=== PATIENT | female | born 1990 | race Caucasian/White ===

== ENCOUNTER 2017-02-25 12:20 | Emergency (ER) | payer MEDICAID, OTHER ==
[2017-02-25 12:21] VITALS: BMI 30.4
[2017-02-25 12:38] VITALS: RESP 18
--- NOTE | 2017-02-25 13:34 | C.PDOC ---
History Of Present Illness Patient is a 27 y/o female who presents to the ED with complaints of lower back and pelvic pain after a fall yesterday. Patient is approximately 6 weeks and has a Hx of two miscarriages. The patient fell back into a wall due to her daughter pulling out a chair from underneath her;. Patient admits to sharp right-sided lower lumbar pain and sharp right-sided abdominal pain. Denies any use of pain medication since falling. . Time Seen by Provider: 02/25/17 13:19 Chief Complaint (Nursing): Back Pain History Per: Patient History/Exam Limitations: no limitations Onset/Duration Of Symptoms: Hrs (pain began last night after falling. ) Current Symptoms Are (Timing): Still Present Quality Of Discomfort: Sharp Pain Scale Rating Of: 5 Recent travel outside of the [place]: No Additional History Per: Patient Past Medical History Reviewed: Historical Data, Nursing Documentation, Vital Signs Vital Signs: Last Vital Signs Temp 98.8 F 02/25/17 12:32 Pulse 79 02/25/17 12:32 Resp 18 02/25/17 12:32 BP 119/62 02/25/17 12:32 Pulse Ox 100 02/25/17 14:04 - Medical History PMH: Anemia Other Surgeries: Cesarian section x2. - [facility] Procedures LOW CERVICAL (03/30/14) Family History: States: Unknown Family Hx - Social History Hx Tobacco Use: No Hx Alcohol Use: No Hx Substance Use: No - Immunization History Hx Tetanus Toxoid Vaccination: No Hx Influenza Vaccination: Yes Hx Pneumococcal Vaccination: No Review Of Systems Constitutional: Negative for: Fever, Chills Cardiovascular: Negative for: Chest Pain Respiratory: Negative for: Shortness of Breath Gastrointestinal: Negative for: Nausea, Vomiting Genitourinary: Negative for: Dysuria, Vaginal Discharge, Vaginal Bleeding Physical Exam - Physical Exam Appears: Non-toxic, In Acute Distress Skin: Normal Color, Warm, Dry Head: Atraumatic, Normacephalic Oral Mucosa: Moist Chest: Symmetrical Cardiovascular: Rhythm Regular, No Murmur Respiratory: Normal Breath Sounds, No Rales, No Rhonchi, No Wheezing Gastrointestinal/Abdominal: Soft, Other (R abdominal area discomfort. ) Back: Muscle Spasm (R paraspinal area. ) Pelvic: No Vaginal Bleeding, No Vaginal Discharge Neurological/Psych: Oriented x3, Normal Speech, Normal Cognition Gait: Steady ED Course And Treatment - Laboratory Results Result Diagrams: 02/25/17 14:14 02/25/17 14:14 O2 Sat by Pulse Oximetry: 100 (Room air) Pulse Ox Interpretation: Normal Medical Decision Making Medical Decision Making: Plan: blood work, UA, US Transvag ordered. US shows very early IUP. Patient does not want any pain medication. Disposition Counseled Patient/Family Regarding: Studies Performed, Diagnosis, Need For Followup - Disposition Disposition: HOME/ ROUTINE Disposition Time: 15:28 Condition: STABLE Additional Instructions: Rest, use a heating pad, massage, warm showers for muscle spasm Follow up with your OB Instructions: Contusion in Adults (ED), Muscle Spasm (ED) Forms: [facility] (Yoruba), General Discharge Instructions - POA Present On Arrival: None - Clinical Impression Clinical Impression: Low back pain, at early stage - Scribe Statement The provider has reviewed the documentation as recorded by the Scribe Ana Gross All medical record entries made by the Scribe were at my direction and personally dictated by me. I have reviewed the chart and agree that the record accurately reflects my personal performance of the history, physical exam, medical decision making, and the department course for this patient. I have also personally directed, reviewed, and agree with the discharge instructions and disposition.
[2017-02-25 14:19] LABS: BASO % 0.3 % (0.0-2.0); EOS # 0.1 K/uL (0.0-0.7); EOS % 1.9 % (0.0-4.0); LYMPH # 1.4 K/uL (1.0-4.3); LYMPH % 20.5 % (20.0-40.0); MEAN CELL VOLUME 84.2 fL (81.0-99.0); MEAN CORPUSCULAR HEMOGLOBIN 28.2 pg (27.0-31.0); MEAN CORPUSCULAR HGB CONC 33.5 g/dL (33.0-37.0); MEAN PLATELET VOLUME 9.5 fL (7.2-11.7); MONO # 0.6 K/uL (0.0-0.8); MONO % 8.4 % (0.0-10.0); RED CELL DISTRIBUTION WIDTH 15.5 % (11.5-14.5); WHITE BLOOD COUNT 6.6 K/uL (4.8-10.8)
[2017-02-25 14:23] LABS: RBC URINE 3 /hpf (0-3); URINE BILIRUBIN NEGATIVE (NEGATIVE); URINE BLOOD NEGATIVE (NEGATIVE); URINE COLOR Yellow (YELLOW); URINE GLUCOSE (UA) NORMAL (Normal); URINE KETONE TRACE mg/dL (NEGATIVE); URINE LEUKOCYTE ESTERASE NEG Leu/uL (Negative); URINE PROTEIN NEGATIVE (NEGATIVE); URINE UROBILINOGEN NORMAL mg/dL (0.2-1.0); WBC URINE 1 /hpf (0-5)
[2017-02-25 14:32] LABS: ALB/GLOB RATIO 1.4 (1.0-2.1); ALKALINE PHOSPHATASE 54 U/L (38-126); ALT/SGPT 28 U/L (9-52); AST/SGOT 21 U/L (14-36); BILIRUBIN,TOTAL 0.3 mg/dL (0.2-1.3); BLOOD UREA NITROGEN 14 mg/dL (7-17); CARBON DIOXIDE 24 mmol/L (22-30); CHLORIDE 104 mmol/L (98-107); GFR AFRICAN-AMERICAN > 60; GLUCOSE,RANDOM 70 mg/dL (65-105); POTASSIUM 3.9 mmol/L (3.6-5.2); SODIUM 141 mmol/L (132-148)
[2017-02-25 15:44] VITALS: BP 108/74; PULSE 84; TEMP 98.2; O2SAT 98
--- NOTE | 2017-02-25 15:49 | US ---
PROCEDURE: OB Pelvic Ultrasound HISTORY: fall, with pelvic pain COMPARISON: None available. FINDINGS: UTERUS: Gestational sac: Single intrauterine gestation. Heart rate: 0 bpm. age (Ultrasound estimated): 5 weeks 5 days +/-0 weeks 4 days Caroline-gestational hemorrhage: Small subchorionic bleeds noted measures 1.3 x 10.5 x 0.5 centimeter. Date of delivery (Ultrasound estimated) : 10/23/2017 Uterus measures 9.9 x 6.1 x 6.96 cm. Normal in size and appearance. CERVIX: Long and closed. No cervical abnormality seen. RIGHT OVARY: Measures 2.2 x 1.6 x 1.9 cm. No mass lesion. Normal flow. LEFT OVARY: Measures measures 1.6 x 1.2 x 1.4 Cm. No solid mass. Normal flow. There is cyst seen at the left ovary measures 1.6 x 1.2 x 1.4 centimeter may represent corpus luteum cyst. FREE FLUID: None. OTHER FINDINGS: None. IMPRESSION: Intrauterine gestational sac contains yolk sac and pole. No heart activity appreciated in this study. The possibility of demise should be considered. Close follow-up reassessment is recommended. The ultrasound estimated of the gestational age is 5 weeks 5 days. Small subchorionic bleed measures 1.3 x 0.5 x 0.5 centimeter.
== END 2017-02-25 15:45 | disposition home or self-care (01) ==
LOC: C.ER 12:20
DX: O26.891 Other specified pregnancy related conditions, first trimester (principal); M54.5 Low back pain; Z3A.01 Less than 8 weeks gestation of pregnancy

== ENCOUNTER 2017-10-05 22:44 | Inpatient (IN) | payer MEDICAID ==
[~2017-10-05 22:44] MED LIST: Sodium Citrate/Citric Acid 15 ml Sol PO ONE
[2017-10-05] MEDS ORDERED: cefOXitin IV 2 gm in Saline 2 GM in Sodium Chloride 0.9% 50 ML IV SCH (23:45)
[2017-10-05] MEDS ORDERED: Lactated Ringer's 1,000 ML IV SCH (23:45)
[2017-10-06 00:31] LABS: BASO % 0.2 % (0.0-2.0); EOS # 0.1 K/uL (0.0-0.7); EOS % 0.7 % (0.0-4.0); HEMOGLOBIN 10.7 g/dL (11.0-16.0); LYMPH # 1.7 K/uL (1.0-4.3); LYMPH % 14.3 % (20.0-40.0); MEAN CORPUSCULAR HEMOGLOBIN 29.5 pg (27.0-31.0); MEAN CORPUSCULAR HGB CONC 33.9 g/dL (33.0-37.0); MEAN PLATELET VOLUME 9.5 fL (7.2-11.7); MONO # 0.8 K/uL (0.0-0.8); MONO % 7.1 % (0.0-10.0); NEUT % 77.7 % (50.0-75.0); NRBC % 0.1 % (0.0-2.0); RBC 3.63 Mil/uL (3.80-5.20); RED CELL DISTRIBUTION WIDTH 15.1 % (11.5-14.5); WHITE BLOOD COUNT 11.5 K/uL (4.8-10.8)
--- NOTE | 2017-10-06 00:32 | OBHP ---
Datetime: 10/05/2017 23:59 IP Adm Impression: Term, intrauterine ; No Active Labor; Intact Membranes IP Chief Complaint Other: Previous C/S x 2; previous LGA IP Adm Impression Other: Uterine contractions IP Admit Plan: Admit to unit; Initiate Section protocol Admit Comment, IP Provider: 27 y.o. , LMP 01/17/17, SUNITAH 10/23/17, EGA 37w 3d c/o worsening lowe r abdominal/ pelvic pain, since 1730 hours. Dull, constant lower abdominal pain, pain scale now 6/10 with intermittent exacerbations every 6-8 minutes, pain scale 10/10, to the point where "I can't walk or move". This has been occurring intermittently x 1 week. 09/25/17 was seen at [facility] for possible rup ture of membranes; found to be intact. (+) AFM; denies LOF, VB. care:[facility]; last visit 10/03/17. Patient desires TOLAC. P Ob: x 1, 2007, 38 weeks, female, 6lb, no complications. C/S, 2012, 42 weeks, female, 9lb 5o z, failed IOL with NRFHRT. C/S, 2013, female, 6lb 10oz, no complications. All at [facility]. S pont ab x 2: 2011 @ 4months; 2015 @ 12 weeks - no D_C. 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 Denies fibroids, abnormal Pap PMH: denies PSH: C/S x 2 NKDA Food allergy: 1) pineapple = rash to lips; 2) kiwi friut = anaphylaxis Meds: PNV - QD Soc Hx: denies tobacco, illicit drug or EtOH use. With FOB x 8 years; lives with him and their 3 g irls. Homemaker Fam Hx; Mother when patinet 8 - drug-related. Father alive 48 y.o. - no med issues. (+) P aternal side - DM and cardiac disease. Mat side - breast cancer P.E.: as above. Mildly obese in NAD; slighly anxious. Awake, alert, oriented to time, person and p lace. Pleasant and cooperative. Assessment: 27 y.o. P3023, 37w 3d, prev C/S x 2 - uterine contracitons and abdominal tenderness - cannot r/o uterine rupture, or placenta abruption. Cateagory 1 tracing. Patient last ate 2000 hours (oxtail and 4 spoons of rice. Per patient she couldn't eat as she was in so much pain). Conversatoin had with anesthesia: ideal to wait 8 hours since last meal before proceeding with C/S. Informed cons ents obtained and in chart. Patient is clincially stable. Plan: 1) Admit 2) NPO 3) Admission labs 4) Continuous EFM 5) Notify peds 6) Posada to gravity 7) Pre-op medications 8) abdominal prep and shave Pelvic Type - PN: Adequate Extremities - PN: Normal Abdomen - PN: Abnormal Back - PN: Normal Breast - PN: Normal Lungs - PN: Normal Heart - PN: Normal Thyroid - PN: Not Done Neurologic - PN: Normal HEENT - PN: Normal General - PN: Normal Presentation-Admit: Vertex FHR - Baseline A Provider: 130 Contraction Comments Provider: irregular, 8 - 12 mnutes Comments, ACOG Physical Exam: Skin: warm to touch; multiple tattooes Abdomen: Obest. Gravid. (+) tenderness in LUQ and over Pfannenstiel scar. Fundal height 39 cm Healed Pfannenstiel scar. All other systems reviewed and are negative Gestation - Est Wks by US: 37w 3d IP Hx Assessment: The History has been Reviewed and is Current EGA AdmitDate IP: 37.3 Vital Signs Provider: Reviewed; Within Normal Limits IP Chief Complaint: Uterine contractions NICHD Variability Prov Fetus A: Moderate 6-25bpm NICHD Accel Fetus A IP Provider: 15X15 Dilatation, Provider: 1 Effacement, Provider: 20 Station, Provider: high Genitourinary Exam: Normal DTRs - PN: Not Done
[2017-10-06 00:35] LABS: SQUAMOUS EPITHIAL 2 /hpf (0-5); URINE BACTERIA RARE (<OCC); URINE BILIRUBIN NEGATIVE (NEGATIVE); URINE BLOOD NEGATIVE (NEGATIVE); URINE CLARITY Clear (Clear); URINE COLOR Yellow (YELLOW); URINE GLUCOSE (UA) NORMAL (Normal); URINE LEUKOCYTE ESTERASE NEG Leu/uL (Negative); URINE PROTEIN 1+ mg/dL (NEGATIVE)
[2017-10-06 00:46] LABS: ALB/GLOB RATIO 1.1 (1.0-2.1); ALBUMIN 3.4 g/dL (3.5-5.0); ALT/SGPT 11 U/L (9-52); AST/SGOT 22 U/L (14-36); BLOOD UREA NITROGEN 9 mg/dL (7-17); GFR AFRICAN-AMERICAN > 60; GFR NON-AFRICAN AMERICAN > 60
[2017-10-06 01:00] LABS: BARBITURATES, UR NEGATIVE (NEGATIVE); BENZODIAZEPINES, UR NEGATIVE (NEGATIVE); OPIATES, UR NEGATIVE (NEGATIVE); PHENCYCLIDINE, UR NEGATIVE (NEGATIVE)
[2017-10-06] MEDS ORDERED: cefOXitin 2 GM in Sodium Chloride 0.9% 100 ML IV SCH (01:00)
[2017-10-06] MEDS: Lactated Ringer's 1,000 ML IV SCH ×2 (01:35→11:58)
[2017-10-06] MEDS ORDERED: Sodium Citrate/Citric Acid 15 ml Sol ONE (01:35)
[2017-10-06] MEDS ORDERED: cefOXitin IV 2 gm in Saline 2 GM/50 ML BAG IVPB ONE (01:35)
[2017-10-06] MEDS ORDERED: Oxytocin 20 units in LR 2,000 ML IV ONE (01:35)
[2017-10-06] MEDS ORDERED: Morphine 1 mg/ml preservative-free Inj(Duramorph) ONE (01:52)
[2017-10-06] MEDS ORDERED: Midazolam 2 MG/2 ML VIAL ONE (02:14)
[2017-10-06] MEDS ORDERED: Ketamine 50 mg/ml Inj (2 ml) ONE (02:14)
[2017-10-06] MEDS ORDERED: Oxycodone/Acetaminophen 5/325 mg Tab PO PRN ×2 (03:18)
--- NOTE | 2017-10-06 03:30 | OBDS ---
DELIVERY PERSONNEL Delivery Doctor: Mary Joyner MD Scrub Nurse: Marguerite Arreola Patient Registration Clerk: Mini Elder RN Anesthesiologist: MATERNAL INFORMATION Delivery Anesthesia: Spinal Medications in Delivery: Pitocin Estimated Blood Loss (ml): 800 Placenta Cultured: No Maternal Complications: None RN Comments: Live baby girl delivered via repeat . s 8. Provider Comments: Uncomplicated repeat LTCS with delivery of live female infant, ROT position, kat ght 7lb 5oz, 's 8 at 1/5/10 minutes. Patient tolerated procedure well. to well baby n deana for observation. Both in stable condition. LABOR SUMMARY EDC: 10/23/2017 00:00 No. Babies in Womb: 1 Attempted: No Labor Anesthesia: None LABOR INFORMATION Reason for Induction: Not Applicable Onset of Labor: 10/05/2017 17:00 Oxytocin: N/A Group B Beta Strep: Negative Antibiotics # of Doses: 0 Steroids Given: None Reason Steroids Not Administered: Not Applicable MEMBRANES Membranes Rupture Method: Artificial Rupture of Membranes: 10/06/2017 02:28 Length of Rupture (hrs): 0.00 Amniotic Fluid Color: Clear Amniotic Fluid Amount: Moderate Amniotic Fluid Odor: Normal STAGES OF LABOR Stage 3 hrs: 0 Stage 3 min: 1 Total Time in Labor hrs: 9 Total Time in Labor min: 29 VAGINAL DELIVERY Episiotomy: None Laceration Extension: N/A Laceration Type: None CSECTION DELIVERY Primary Indication: Repeat Elective CSection Urgency: Elective CSection Incidence: Repeat Labor: No Labor Elective: Elective CSection Incision: Lower Uterine Transverse BABY A INFORMATION Delivery Date/Time: 10/06/2017 02:28 Method of Delivery: Born in Route : No : N/A Forceps: N/A Vacuum Extraction: N/A Shoulder Dystocia : No SHOULDER DYSTOCIA BABY A Infant Delivery Date/Time: 10/06/2017 02:28 PRESENTATION/POSITION BABY A Presentation: Cephalic Cephalic Presentation: Vertex Vertex Position: Right Occipital Transverse Breech Presentation: N/A PLACENTA INFORMATION BABY A Placenta Delivery Time : 10/06/2017 02:29 Placenta Method of Delivery: Manual Removal Placenta Status: Delivered SCORES BABY A Heart Rate 1 min: >100 bpm Resp Effort 1 min: Slow, Irregular Reflex Irritability 1 min: Cough or Sneeze or Pulls Away Muscle Tone 1 min: Some Flexion of Extremities Color 1 min: Body Plainedge, Extremities Blue SCORE 1 MIN: 7 Heart Rate 5 min: >100 bpm Resp Effort 5 min: Slow, Irregular Reflex Irritability 5 min: Cough or Sneeze or Pulls Away Muscle Tone 5 min: Some Flexion of Extremities Color 5 min: Body Plainedge, Extremities Blue SCORE 5 MIN: 7 Heart Rate 10 min: >100 bpm Resp Effort 10 min: Slow, Irregular Reflex Irritability 10 min: Cough or Sneeze or Pulls Away Muscle Tone 10 min: Active Motion Color 10 min: Body Plainedge, Extremities Blue SCORE 10 MIN: 8 INFORMATION BABY A Gestational Age at Delivery: 37.4 Gestational Status: Term Outcome : Liveborn Condition : Stable Infant Sex: Female IDENTIFICATION/MEDS BABY A ID Band Number: [id number] Sensor Number: [id number] Vitamin K Given : Not Given Erythromycin Given: Not Given WEIGHT/LENGTH BABY A Birthweight (gms): 3305 Weight (lb): 7 Weight (oz): 5 Infant Length Inches: 19.50 Length cms: 49.5 CORD INFORMATION BABY A No. Cord Vessels: 3 Nuchal Cord : N/A Cord Blood Taken: Yes Infant Suction: Mouth; Nose ASSESSMENT BABY A Infant Complications: None Physical Findings at Delivery: Within Normal Limits Respirations: Appears Normal Reed Cleaner/ALS Called : No Care By: Dr. Mercado/ Jefferson GALLO RN Transferred To: [facility]
[2017-10-06] MEDS ORDERED: DiphenhydrAMINE 50 mg/ml Inj IVP PRN (03:31)
--- NOTE | 2017-10-06 03:33 | PCM.SURG1 ---
Surgeon's Initial Post Op Note - Surgeon's Notes Surgeon: Yolanda Joyner MD Substation Maintenance Technician: Trent Vidal MD Type of Anesthesia: Spinal Anesthesia Administered By: Deonte Lau MD Pre-Operative Diagnosis: 37 weeks 3 days, previous section x 2; uterine contractions; abdominal tenderness Operative Findings: Live female infant, ROT position, weight 7lb 5oz, 's 7/ 7/8 at 1/5/10 minutes. Grossly normal placenta; 3 vessel cord. Normal uterus; and normal fallopian tubes and ovaries bilaterally. Post-Operative Diagnosis: Same Operation Performed: Repeat transverse lower uterine segment section Specimen/Specimens Removed: none Estimated Blood Loss: EBL {In ML}: 800 (U.O. 300 mL; IVFs 2,000 mL LR with 20 units pitocin) Blood Products Given: N/A Drains Used: No Drains Post-Op Condition: Good Date of Surgery/Procedure: 10/06/17 Time of Surgery/Procedure: 03:15
--- NOTE | 2017-10-06 03:43 | OBADHP ---
Datetime: 10/05/2017 23:59 IP Chief Complaint Other: Previous C/S x 2; previous LGA IP Adm Impression Other: Uterine contractions Admit Comment, IP Provider: 27 y.o. , LMP 01/17/17, SUNITHA 10/23/17, EGA 37w 3d c/o worsening lowe r abdominal/ pelvic pain, since 1730 hours. Dull, constant lower abdominal pain, pain scale now 6/10 with intermittent exacerbations every 6-8 minutes, pain scale 10/10, to the point where "I can't walk or move". This has been occurring intermittently x 1 week. 09/25/17 was [place] at [facility] possible rup [place]ure of membranes; found to be intact. (+) AFM; denies LOF, VB. care:[facility]; last visit 10/03/17. Patient desires TOLAC. P Ob: x 1, 2007, 38 weeks, female, 6lb, no complications. C/S, 2012, 42 weeks, female, 9lb 5o z, failed IOL with NRFHRT. C/S, 2013, female, 6lb 10oz, no complications. All at [facility]. S pont ab x 2: 2011 @ 4months; 2016 @ 12 weeks - no D_C. 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 Denies fibroids, abnormal Pap PMH: denies PSH: C/S x 2 NKDA Food allergy: 1) pineapple = rash to lips; 2) kiwi friut = anaphylaxis Meds: PNV - QD Soc Hx: denies tobacco, illicit drug or EtOH use. With FOB x 8 years; lives with him and their 3 g irls. Homemaker Fam Hx; Mother when patinet 8 - drug-related. Father alive 48 y.o. - no med issues. (+) P aternal side - DM and cardiac disease. Mat side - breast cancer P.E.: as above. Mildly obese in NAD; slighly anxious. Awake, alert, oriented to time, person and p lace. Pleasant and cooperative. Assessment: 27 y.o. P3023, 37w 3d, prev C/S x 2 - uterine contracitons and abdominal tenderness - cannot r/o uterine rupture, or placenta abruption. Cateagory 1 tracing. Patient last ate 2000 hours (oxtail and 4 spoons of rice. Per patient she couldn't eat as she was in so much pain). Conversatoin had with anesthesia: ideal to wait 8 hours since last meal before proceeding with C/S. Informed cons ents obtained and in chart. Patient is clincially stable. Plan: 1) Admit 2) NPO 3) Admission labs 4) Continuous EFM 5) Notify peds 6) Posada to gravity 7) Pre-op medications 8) abdominal prep and shave Pelvic Type - PN: Adequate Extremities - PN: Normal Abdomen - PN: Abnormal Back - PN: Normal Breast - PN: Normal Lungs - PN: Normal Heart - PN: Normal Thyroid - PN: Not Done Neurologic - PN: Normal HEENT - PN: Normal General - PN: Normal Presentation-Admit: Vertex FHR - Baseline A Provider: 130 Contraction Comments Provider: irregular, 8 - 12 mnutes Comments, ACOG Physical Exam: Skin: warm to touch; multiple tattooes Abdomen: Obest. Gravid. (+) tenderness in LUQ and over Pfannenstiel scar. Fundal height 39 cm Healed Pfannenstiel scar. All other systems reviewed and are negative Gestation - Est Wks by US: 37w 3d IP Hx Assessment: The History has been Reviewed and is Current Vital Signs Provider: Reviewed; Within Normal Limits IP Chief Complaint: Uterine contractions NICHD Variability Prov Fetus A: Moderate 6-25bpm NICHD Accel Fetus A IP Provider: 15X15 Dilatation, Provider: 1 Effacement, Provider: 20 Station, Provider: high Genitourinary Exam: Normal DTRs - PN: Not Done EGA AdmitDate IP: 37.3 IP Adm Impression: Term, intrauterine ; No Active Labor; Intact Membranes IP Admit Plan: Admit to unit; Initiate Section protocol
--- NOTE | 2017-10-06 09:25 | OP ---
PROCEDURE DATE: 10/06/2017 SURGEON: Yolanda Joyner MD [employer] LICENSEE: Trent iVdal MD ANESTHESIOLOGIST: Deonte Lau MD TYPE OF ANESTHESIA: Spinal. PREOPERATIVE DIAGNOSES: 37 weeks 3 days gestation, previous Caesarean section x2 with uterine contractions and abdominal tenderness. POSTOPERATIVE DIAGNOSES: 37 weeks 3 days gestation, previous Caesarean section x2 with uterine contractions and abdominal tenderness; very thin lower uterine segment. OPERATIVE FINDINGS: Very thin lower uterine segment. Live female from the right occipital transverse position. Weight was 7 pounds 5 ounces. ' s were 7, 7, and 8 at 1, 5, and 10 minutes, respectively. Grossly normal placenta with a three-vessel cord. Normal uterus, and normal ovaries and fallopian tubes , bilaterally. OPERATION PERFORMED: Repeat transverse lower uterine segment Caesarean section. SPECIMENS: None. ESTIMATED BLOOD LOSS: 800 mL. URINE OUTPUT: 300 mL of clear urine. INTRAVENOUS FLUIDS: 2000 mL of lactated Ringer's. First 1000 liters had 20 units of Pitocin. BLOOD PRODUCTS GIVEN: None. Drains used: none. POSTOPERATIVE CONDITION: Good. DESCRIPTION OF PROCEDURE: The patient was taken to the operating room after having obtained informed consent for the anticipated procedure. This included a discussion of possible risks and complications including but not limited to infection, requiring antibiotics, hemorrhage requiring blood transfusion, repair of any damage to internal organs, possible Caesarean hysterectomy. The patient expressed understanding. No questions were offered. Consents were signed, dated, witnessed, and placed in the chart. The patient received Mefoxin 2 gm prior to being escorted to the operating room. A Posada indwelling catheter was placed under sterile conditions. The patient was then escorted to the operating room via wheelchair. She was placed on the operating room table in sitting position where spinal anesthesia was administered without incident. The patient was immediately repositioned to a supine position. The abdomen was prepped, and she was draped in the usual sterile fashion. After assuring an adequate level of anesthesia using a scalpel, a Pfannenstiel incision was made on the skin through the previous scars. The incision was carried down through the subcutaneous tissue using the Bovie electrocautery. The fascia was identified, it was nicked in the midline and incision was extended bilaterally also using the Bovie electrocautery. The rectus muscle was then dissected off the overlying fascia. The rectus muscle was then in the midline by sharp dissection. By blunt dissection, the abdominal cavity was entered. The bladder flap was created. A transverse incision was made on the uterus using the scalpel. Amniotomy was performed and copious amount of clear amniotic fluid was obtained. Atraumatic delivery of the infant ensued with the findings as above. Once on the operative field, the 's mouth and nose were bulb suctioned and umbilical cord was doubly clamped and cut. The was handed off the operative field to the spray unit feeder in attendance. The placenta was delivered by manual extraction. It was grossly normal with three vessels present in the cord. The uterus was then exteriorized for closure. Uterine exploration was performed and the uterus was firm and contracted. The uterine incision was closed in two layers using 0 Vicryl. The first layer was in a running interlocking fashion. The second layer was in a horizontal imbricating fashion. After assuring an adequate level of hemostasis on the uterine incision, the posterior aspect of the uterus was examined - findings of the pelvic viscera as described above. Copious irrigation was performed. Attention was then redirected to the anterior aspect of the uterus. Bladder flap was created. A layer of Surgicel was placed along the uterine incision. After recreating the bladder flap, the uterus was returned to the abdominal cavity. The paracolic gutters were cleared of all debris. The peritoneum was reapproximated using 2-0 chromic in a running fashion, and the rectus muscle was reapproximated in midline also using 2-0 chromic in a running fashion. The fascia was reapproximated using 0 Vicryl in a running fashion in one strand. The subcutaneous tissue was reapproximated using 0 plain gut in a running fashion. The skin was reapproximated using surgical clips. The patient was repositioned in a frog-leg manner. Bimanual exploration was performed. The uterus was again evacuated of all clots and debris. It was contracted and firm, at the level of the umbilicus. The patient was subsequently transferred to [facility]. had been transferred to [facility] for further evaluation. Dr. Trent Vidal was present for the entire procedure, from beginning to end. His presence was necessary for the followin) adequate visualization of the operative field at all times 2) the safe and atraumatic delivery of the infant 3) assuring adequate hemostasis at all times Yolanda MD Ar MTDEllen
[2017-10-06] MEDS: Simethicone 80 mg Chewtab PO SCH ×4 (10:21→21:33)
[2017-10-07] MEDS: Simethicone 80 mg Chewtab PO SCH ×4 (09:15→21:55)
--- NOTE | 2017-10-07 09:21 | OBPPN ---
Datetime: 10/07/2017 09:18 PP Pain Prov: Within normal limits PP Nausea Prov: Denies PP Flatus Prov: Yes PP BM Prov: No PP Breasts Prov: Normal PP Heart Prov: Normal PP Lungs Prov: Normal PP Abdomen/Uterus Prov: Normal PP Lochia Prov: Normal PP Extremities Prov: Normal PP C/S Incision Prov: Normal PP Impression Prov: Normal progression PP Plan Prov: Continue present management PP Progress Note Prov: s: no c/o; pain well controlled o: incision c/d/i; no erythema i: s/p repeat cd p: cbc pending wound hygiene reviewed. IP PP Procedures: None Vital Signs Provider PP: Within Normal Limits
[2017-10-07 09:26] LABS: BASO % 0.3 % (0.0-2.0); EOS # 0.2 K/uL (0.0-0.7); EOS % 1.1 % (0.0-4.0); HEMOGLOBIN 10.6 g/dL (11.0-16.0); LYMPH # 1.3 K/uL (1.0-4.3); LYMPH % 8.9 % (20.0-40.0); MEAN CORPUSCULAR HEMOGLOBIN 29.7 pg (27.0-31.0); MEAN CORPUSCULAR HGB CONC 33.8 g/dL (33.0-37.0); MEAN PLATELET VOLUME 9.4 fL (7.2-11.7); MONO # 1.1 K/uL (0.0-0.8); NEUT # 11.6 K/uL (1.8-7.0); NEUT % 81.7 % (50.0-75.0); NRBC % 0.1 % (0.0-2.0); PLATELET COUNT 217 K/uL (130-400); RBC 3.57 Mil/uL (3.80-5.20); RED CELL DISTRIBUTION WIDTH 15.2 % (11.5-14.5); WHITE BLOOD COUNT 14.2 K/uL (4.8-10.8)
[2017-10-07 10:07] LABS: BANDS 1 % (0-2); LYMPHOCYTE 8 % (20-40); MONOCYTE 10 % (0-10); NEUTROPHIL 81 % (50-75); PLATELET ESTIMATE NORMAL (NORMAL); TOTAL CELLS COUNTED 100
[2017-10-07 10:08] LABS: ANISOCYTOSIS SLIGHT; OVALOCYTES SLIGHT
[2017-10-07 10:09] LABS: LARGE PLATELETS PRESENT
--- NOTE | 2017-10-08 09:17 | OBPPN ---
Datetime: 10/08/2017 07:37 PP Pain Prov: Within normal limits PP Nausea Prov: Denies PP Flatus Prov: Yes PP BM Prov: No PP Breasts Prov: Not Done PP Heart Prov: Normal PP Lungs Prov: Normal PP Abdomen/Uterus Prov: Normal PP Lochia Prov: Not Done PP Vulva/Perineum Prov: Not Done PP CVA Tenderness Prov: Normal PP Extremities Prov: Normal PP C/S Incision Prov: Normal PP Impression Prov: Normal progression PP Plan Prov: Continue present management PP Progress Note Prov: Patient was seen and examined at bedside in no acute distress. Patient report s she is passing flatus, however, has no had a bowel movement. She is tolerating her diet and ambulat ing. She denies chest pain, dyspnea, abdominal pain, nausea, vomiting, fevers, headaches, difficulty walking, leg pain/cramping. VSS PE: HEENT: normocephalic, atraumatic Cardio: normal S1, S2; no murmurs, rubs, gallops Pulm: CTA b/l, no wheezing/rhonchi/rales GI: normal bowel sounds; mild distension; mild diffuse tenderness with palpation; incision clean, dry, intact. Ext: 1+ LE pitting edema b/l; no tenderness Neuro: aox3 Psych: normal mood, normal affect. Plan/assessment: - Continue current management - Continue Ibuprofen/Tylenol prn for pain - Continue Feosol 325mg PO TID - Continue Colace 100mg PO TID for constipation and dulcolax FL prn for constiptation - Encouraged ambulation. agree with above pt seen adn examiend with residnet pt ambaut, votmary diet, voiding, passign flatus, dnies any vb, lighthead, dizyznes, cp, sob, fev eyr , chills, nasue, voitng VSS PE see above a/p s/p RLTCS POD #2 doign well dulcoax suppostiry prn enocuraeg ambiton, breat feeding anticsp dc in am Vital Signs Provider PP: Reviewed; Within Normal Limits
[2017-10-08] MEDS: Simethicone 80 mg Chewtab PO SCH ×4 (09:48→22:07)
[2017-10-09] MEDS: Simethicone 80 mg Chewtab PO SCH (09:53)
--- NOTE | 2017-10-09 10:09 | OBDCSUM ---
Datetime: 10/09/2017 10:06 Discharged to, Provider: Home Follow up at, Provider: ob dr Casillas Instr Activity: May Shower Disch Instr Diet: Regular Discharge Instructions, Provider: Specific instructions as noted Discharge Diagnosis, Provider: Term Delivered Discharge Time: 10/09/2017 10:06 Follow up in weeks, Provider: 2-4d Disch Referrals: None Discharge Instruct Comment, Prov: pp _ postop Contraception discussed, Prov: No Disch Activity Restrictions: No exercising; No lifting; No driving; No sexual activity; Nothing in v agina - Hermann, tampons, douche Contraception after Delivery: Undecided
--- NOTE | 2017-10-09 10:09 | OBPPN ---
Datetime: 10/09/2017 10:02 PP Nausea Prov: Denies PP Flatus Prov: Yes PP BM Prov: Yes PP Breasts Prov: Normal PP Heart Prov: Normal PP Lungs Prov: Normal PP Abdomen/Uterus Prov: Normal PP Lochia Prov: Normal PP Extremities Prov: Normal PP Progress Prov: Normal PP Impression Prov: Normal progression PP Plan Prov: Discharge PP Progress Note Prov: s: no c/o. pain well controlled o: pfannensteil incision c/d/i i: s/p cd doing well p: d/c home f/u 2-3days for staple removal. IP PP Procedures: None Vital Signs Provider PP: Reviewed; Within Normal Limits
[2017-10-09 18:49] VITALS: BP 106/66; PULSE 100; RESP 18; TEMP 97.2; O2SAT 98
== END 2017-10-09 13:30 | disposition home or self-care (01) | DRG 371 ==
LOC: C.EROB 22:44 → C.4D 23:34 → C.4M 10-06 09:15
PROVIDERS: ADMIT Obstetrics & Gynecology; ATTEND Obstetrics & Gynecology
PROC: 10D00Z1 Extraction of Products of Conception, Low, Open Approach (ICD-10-PCS; principal; 2017-10-06)
DX: O34.219 Maternal care for unspecified type scar from previous cesarean delivery (principal); Z3A.37 37 weeks gestation of pregnancy; Z37.0 Single live birth

== ENCOUNTER 2017-11-08 16:02 | Emergency (ER) | payer MEDICAID ==
[2017-11-08 16:12] VITALS: BMI 27.3
[2017-11-08 16:15] VITALS: BP 98/66; PULSE 69; RESP 20; TEMP 99.1; O2SAT 100
--- NOTE | 2017-11-08 17:16 | C.PDOC ---
History Of Present Illness 27 y/o female presents to ED concerned for healing of she had [address] Joyner. Patient states wound developed discharge and foul odor, denies injury to area, bleeding, nausea, vomiting, fever or any other complaints at this time. Time Seen by Provider: 11/08/17 16:34 Chief Complaint (Nursing): Abnormal Skin Integrity History Per: Patient History/Exam Limitations: no limitations Onset/Duration Of Symptoms: Days Current Symptoms Are (Timing): Still Present Past Medical History Reviewed: Historical Data, Nursing Documentation, Vital Signs Vital Signs: Last Vital Signs Temp 99.1 F 11/08/17 16:12 Pulse 69 11/08/17 16:12 Resp 20 11/08/17 16:12 BP 98/66 L 11/08/17 16:12 Pulse Ox 100 11/08/17 17:16 - Medical History PMH: Anemia Surgical History: No Surg Hx - [facility] Procedures EXTRACTION OF POC, LOW CERVICAL, OPEN APPROACH (10/05/17) LOW CERVICAL (03/30/14) Family History: States: No Known Family Hx - Social History Hx Tobacco Use: No Hx Alcohol Use: No Hx Substance Use: No - Immunization History Hx Tetanus Toxoid Vaccination: No Hx Influenza Vaccination: Yes Hx Pneumococcal Vaccination: No Review Of Systems Constitutional: Negative for: Fever, Chills Gastrointestinal: Positive for: Abdominal Pain. Negative for: Nausea, Vomiting Genitourinary: Negative for: Vaginal Bleeding Skin: Negative for: Rash Physical Exam - Physical Exam Appears: Non-toxic, No Acute Distress Skin: Warm, Dry, No Rash Head: Atraumatic, Normacephalic Eye(s): bilateral: Normal Inspection Oral Mucosa: Moist Neck: Normal ROM, Supple Cardiovascular: Rhythm Regular Respiratory: Normal Breath Sounds, No Rales, No Rhonchi, No Wheezing Gastrointestinal/Abdominal: Soft, No Tenderness, No Guarding, No Rebound, Other (Healing Fenistil scar. No discharge. No abscess. No fluctuance. ) Back: No CVA Tenderness, No Vertebral Tenderness Neurological/Psych: Oriented x3, Normal Speech, Normal Cognition ED Course And Treatment O2 Sat by Pulse Oximetry: 100 (RA) Pulse Ox Interpretation: Normal Reevaluation Time: 17:15 Reassessment Condition: Improved (seen and evaluated by Dr. Joyner who performed the , ok to d/c home.) Medical Decision Making Medical Decision Making: healing scar ok to d/c no abx per OBGYN Disposition Doctor Will See Patient In The: Office Counseled Patient/Family Regarding: Studies Performed, Diagnosis - Disposition Referrals: [facility] [place] [Outside] [facility] [Outside] Disposition: HOME/ ROUTINE Disposition Time: 17:15 Condition: GOOD Additional Instructions: continue daily soap and water washing keep dry Thin smear of Bacitracin ointment and clean dry dressings daily Follow-up w OBGYN as needed. Instructions: Wound Care (DC) Forms: [employer] (Bahamian) - Clinical Impression Clinical Impression: Abnormal surgical wound - Scribe Statement The provider has reviewed the documentation as recorded by the Scribemile Diop All medical record entries made by the Carolaibe were at my direction and personally dictated by me. I have reviewed the chart and agree that the record accurately reflects my personal performance of the history, physical exam, medical decision making, and the department course for this patient. I have also personally directed, reviewed, and agree with the discharge instructions and disposition.
== END 2017-11-08 17:31 | disposition home or self-care (01) ==
LOC: C.ER 16:02
DX: T81.89XA Other complications of procedures, not elsewhere classified, initial encounter (principal)

== ENCOUNTER 2018-03-22 19:27 | Emergency (ER) | payer MEDICAID ==
[2018-03-22 19:27] VITALS: BMI 27.3
[2018-03-22 20:10] VITALS: BP 120/80; PULSE 78; TEMP 99.2; O2SAT 98
--- NOTE | 2018-03-22 20:22 | C.PDOC ---
History Of Present Illness 28-year-old female, presents to the emergency department with complaints sore throat and irritation to her gums x1 week. Patient denies fever, cough, nausea/vomiting, or any other associated symptoms. No other complaints at this norman. Time Seen by Provider: 03/22/18 20:12 Chief Complaint (Nursing): ENT Problem History Per: Patient History/Exam Limitations: no limitations Past Medical History Reviewed: Historical Data, Nursing Documentation, Vital Signs Vital Signs: Last Vital Signs Temp 99.2 F 03/22/18 20:08 Pulse 78 03/22/18 20:08 Resp 14 03/22/18 20:08 BP 120/80 03/22/18 20:08 Pulse Ox 98 03/22/18 20:08 - Medical History PMH: Anemia Denies: Depression, Diabetes - [facility] Procedures EXTRACTION OF POC, LOW CERVICAL, OPEN APPROACH (10/05/17) LOW CERVICAL (03/30/14) Family History: States: No Known Family Hx - Social History Hx Tobacco Use: No Hx Alcohol Use: No Hx Substance Use: No - Immunization History Hx Tetanus Toxoid Vaccination: No Hx Influenza Vaccination: Yes Hx Pneumococcal Vaccination: No Review Of Systems Constitutional: Negative for: Fever ENT: Positive for: Mouth Pain, Throat Pain. Negative for: Ear Pain, Ear Discharge, Nose Discharge, Nose Congestion, Throat Swelling Respiratory: Negative for: Cough Gastrointestinal: Negative for: Vomiting Musculoskeletal: Negative for: Neck Pain, Back Pain Skin: Negative for: Rash Neurological: Negative for: Weakness, Numbness, Headache, Dizziness Physical Exam - Physical Exam Appears: Non-toxic, No Acute Distress Skin: Warm, Dry, No Rash Head: Atraumatic, Normacephalic Eye(s): bilateral: Normal Inspection Nose: Normal Oral Mucosa: Moist Lips: Normal Appearing Gingiva: Erythema, Ulceration, Swelling, Other (superficial ulcers, erythema to gingiva) Throat: No Erythema, No Exudate, No Drooling, No Mass Neck: Normal ROM, Supple Chest: Symmetrical Respiratory: Other (no apparent respiratoy distress) Extremity: Normal ROM, No Deformity Neurological/Psych: Oriented x3, Normal Speech ED Course And Treatment O2 Sat by Pulse Oximetry: 98 Pulse Ox Interpretation: Normal (RA) Progress Note: Explain symptoms viral and can simply take analgesics or use oragel OTC Disposition Counseled Patient/Family Regarding: Diagnosis, Need For Followup - Disposition Referrals: Wellington De La Torre MD [Staff Provider] - Disposition: HOME/ ROUTINE Disposition Time: 20:19 Condition: STABLE Additional Instructions: Please follow up with your doctor and ENT Can use oragel over the counter symptoms will resolve on their own Instructions: Mouth Sores (DC), Gingivitis (DC) Forms: [facility] (French) - POA Present On Arrival: None - Clinical Impression Clinical Impression: Gingivostomatitis - Scribe Statement The provider has reviewed the documentation as recorded by the Scribe (Shoaib Moffett) All medical record entries made by the Scribe were at my direction and personally dictated by me. I have reviewed the chart and agree that the record accurately reflects my personal performance of the history, physical exam, medical decision making, and the department course for this patient. I have also personally directed, reviewed, and agree with the discharge instructions and disposition.
[2018-03-22 20:28] VITALS: RESP 20
== END 2018-03-22 20:28 | disposition home or self-care (01) ==
LOC: C.ER 19:27
DX: K05.10 Chronic gingivitis, plaque induced (principal)

== ENCOUNTER 2018-09-24 15:40 | Emergency (ER) | payer MEDICAID ==
[2018-09-24 15:40] VITALS: BMI 27.3
[2018-09-24] MEDS ORDERED: Sodium Chloride 0.9% 1,000 ML IV ONE (16:17)
[2018-09-24] MEDS ORDERED: Sodium Chloride 0.9% 1,000 ML ONE (17:02)
--- NOTE | 2018-09-24 17:14 | C.PDOC ---
History Of Present Illness 28 year old female presents to ED with complaint of upper abdominal pain with associated vomiting and watery diarrhea for 2 weeks. Patient also admits to chills. Patient has a PSHx of x 3, most recently 11 months ago. She denies fever, dysuria, hematuria, vaginal bleeding, vaginal discharge, sick contacts. Time Seen by Provider: 09/24/18 15:56 Chief Complaint (Nursing): Abdominal Pain History Per: Patient History/Exam Limitations: no limitations Onset/Duration Of Symptoms: Other (2 weeks) Current Symptoms Are (Timing): Still Present Location Of Pain/Discomfort: RUQ, LUQ Radiation Of Pain To:: None Quality Of Discomfort: "Pain" Associated Symptoms: Chills, Vomiting, Diarrhea. denies: Fever, Urinary Symptoms, Other (vaginal discharge) Exacerbating Factors: None Alleviating Factors: None Abnormal Vaginal Bleeding: No Past Medical History Reviewed: Historical Data, Nursing Documentation, Vital Signs Vital Signs: Last Vital Signs Temp 98.9 F 09/24/18 15:41 Pulse 77 09/24/18 15:41 Resp 18 09/24/18 15:41 BP 120/75 09/24/18 15:41 Pulse Ox 100 09/24/18 15:41 - Medical History PMH: Anemia Surgical History: No Surg Hx - [facility] Procedures EXTRACTION OF POC, LOW CERVICAL, OPEN APPROACH (10/05/17) LOW CERVICAL (03/30/14) Family History: States: No Known Family Hx - Social History Hx Tobacco Use: No Hx Alcohol Use: No Hx Substance Use: No - Immunization History Hx Tetanus Toxoid Vaccination: No Hx Influenza Vaccination: Yes Hx Pneumococcal Vaccination: No Review Of Systems Constitutional: Positive for: Chills. Negative for: Fever Gastrointestinal: Positive for: Nausea, Vomiting, Abdominal Pain, Diarrhea (watery ) Genitourinary: Negative for: Dysuria, Hematuria, Vaginal Discharge, Vaginal Bleeding Physical Exam - Physical Exam Appears: Well, Non-toxic, Other (uncomfortable appearing ) Skin: Normal Color, Warm, Dry Head: Normacephalic Oral Mucosa: Moist Neck: Supple Cardiovascular: Rhythm Regular Respiratory: Normal Breath Sounds, No Accessory Muscle Use, No Rales, No Rhonchi, No Wheezing Gastrointestinal/Abdominal: Bowel Sounds, Soft, Tenderness (diffuse TTP greatest in epigastric and LUQ areas), No Guarding, No Rebound, No Other ((-) Rome's, (-) McBurney's ) Back: No CVA Tenderness Neurological/Psych: Oriented x3 ED Course And Treatment - Laboratory Results Result Diagrams: 09/24/18 17:08 09/24/18 17:08 O2 Sat by Pulse Oximetry: 100 (RA) Pulse Ox Interpretation: Normal - Other Rad Obstructive Series X-Ray: Interpreted by Me, Viewed By Me Interpretation: IMPRESSION: Unremarkable radiographs of chest. Mild findings suggest mild ileus however no evidence acute mechanical bowel obstruction. Progress Note: Blood work, UA, Upreg, obstructive series ordered and reviewed. Patient given IV NS bolus, IV protonix and PO Bentyl. Obstructive series shows some mild air fluid levels - CT scan with PO contrast ordered to r/o SBO. Disposition - Disposition Disposition Time: 19:00 Condition: STABLE Forms: [facility] (Cypriot) - Clinical Impression Clinical Impression: Nausea, Vomiting, Abdominal pain - Scribe Statement The provider has reviewed the documentation as recorded by the Scribe (Rylie Whyte) All medical record entries made by the Scribe were at my direction and personally dictated by me. I have reviewed the chart and agree that the record accurately reflects my personal performance of the history, physical exam, medical decision making, and the department course for this patient. I have also personally directed, reviewed, and agree with the discharge instructions and disposition. Physician Patient Turnover Patient Signed Over To: Beny Good Handoff Comments: pending CT abd/pelvis, reassessment
[2018-09-24 17:18] LABS: BASO % 0.3 % (0.0-2.0); EOS # 1.5 K/uL (0.0-0.7); EOS % 14.7 % (0.0-4.0); HEMOGLOBIN 11.8 g/dL (11.0-16.0); LYMPH # 1.4 K/uL (1.0-4.3); LYMPH % 13.8 % (20.0-40.0); MEAN CELL VOLUME 81.1 fL (81.0-99.0); MEAN CORPUSCULAR HEMOGLOBIN 26.5 pg (27.0-31.0); MEAN CORPUSCULAR HGB CONC 32.7 g/dL (33.0-37.0); MEAN PLATELET VOLUME 9.9 fL (7.2-11.7); MONO # 0.6 K/uL (0.0-0.8); MONO % 5.5 % (0.0-10.0); NEUT # 6.8 K/uL (1.8-7.0); NEUT % 65.7 % (50.0-75.0); RBC 4.43 Mil/uL (3.80-5.20); RED CELL DISTRIBUTION WIDTH 16.4 % (11.5-14.5); WHITE BLOOD COUNT 10.4 K/uL (4.8-10.8)
[2018-09-24 17:31] LABS: ALB/GLOB RATIO 1.5 (1.0-2.1); ALBUMIN 4.6 g/dL (3.5-5.0); ALT/SGPT 23 U/L (9-52); AST/SGOT 28 U/L (14-36); BLOOD UREA NITROGEN 16 mg/dL (7-17); CALCIUM 8.8 mg/dl (8.6-10.4); GFR NON-AFRICAN AMERICAN > 60; LIPASE 45 U/L (23-300)
[2018-09-24 17:42] LABS: HCG,QUALITATIVE URINE NEGATIVE (NEGATIVE)
[2018-09-24 17:51] LABS: SQUAMOUS EPITHIAL 1 /hpf (0-5); URINE BILIRUBIN NEGATIVE (NEGATIVE); URINE BLOOD NEGATIVE (NEGATIVE); URINE CLARITY Hazy (Clear); URINE COLOR Yellow (YELLOW); URINE GLUCOSE (UA) NORMAL (Normal); URINE LEUKOCYTE ESTERASE NEG Leu/uL (Negative); URINE PROTEIN NEGATIVE (NEGATIVE); URINE UROBILINOGEN NORMAL mg/dL (0.2-1.0)
[2018-09-24] MEDS ORDERED: Iohexol 240 (50 ml) PO STA (17:53)
--- NOTE | 2018-09-24 17:54 | RAD ---
Date of service: 09/24/2018 PROCEDURE: Radiographs of the chest and abdomen (obstructive series) HISTORY: Abdominal pain COMPARISON: No prior. TECHNIQUE: AP radiograph of the chest, with upright and supine radiographs of the abdomen. 3 views obtained. FINDINGS: CHEST: Lungs: Clear. Cardiovascular: Normal size heart. No pulmonary vascular congestion. No aortic atherosclerotic calcification present Pleura: No pleural fluid. No pneumothorax. Other findings: None. ABDOMEN AND PELVIS: Bowel: There are several nondistended air-filled loops of small bowel in the left mid abdomen suggesting mild ileus.. No evidence of acute mechanical obstruction. Free air: None. Bones: Unremarkable. Other findings: None. IMPRESSION: Unremarkable radiographs of chest. Mild findings suggest mild ileus however no evidence acute mechanical bowel obstruction.
[2018-09-24] MEDS ORDERED: Iohexol 240 (50 ml) ONE (18:01)
[2018-09-24] MEDS ORDERED: Iodixanol 320 MG/ML 100 ML BOTTLE IV ONE (20:56)
[2018-09-24 23:01] VITALS: BP 133/70; PULSE 81; RESP 17; TEMP 98.4; O2SAT 99
--- NOTE | 2018-09-25 08:22 | CT ---
Date of service: 09/24/2018 PROCEDURE: CT Abdomen and Pelvis with contrast HISTORY: r/o sbo bed [id number] COMPARISON: None available. TECHNIQUE: CT scan of the abdomen and pelvis was performed after administration of intravenous contrast. Oral contrast was administered. Coronal and sagittal reformatted images were obtained. Contrast dose: Radiation dose: Total exam DLP = 1077.96 mGy-cm. This CT exam was performed using one or more of the following dose reduction techniques: Automated exposure control, adjustment of the mA and/or kV according to patient size, and/or use of iterative reconstruction technique. FINDINGS: LOWER THORAX: The visualized lungs are clear. LIVER: Normal in size with homogeneous enhancement. No gross lesion or ductal dilatation. GALLBLADDER AND BILE DUCTS: Well distended. No calcified gallstones, wall thickening or pericholecystic fluid. PANCREAS: Normal in size with homogeneous enhancement. No gross lesion or ductal dilatation. SPLEEN: Normal in size and appearance. ADRENALS: No discrete nodule. KIDNEYS AND URETERS: Normal in size with homogeneous enhancement. No hydronephrosis. No solid mass. VASCULATURE: No aortic aneurysm. There are no aortic atherosclerotic calcifications or mural plaque present. BOWEL: The proximal small bowel loops are normal in caliber. There is mild circumferential mural thickening in the terminal ileum and at the ileocecal junction. The colon is grossly normal in appearance. No bowel wall thickening or obstruction. APPENDIX: Normal appendix. PERITONEUM: Small amount of free fluid in the right lower quadrant. No free air. LYMPH NODES: Small subcentimeter lymph nodes in the right lower quadrant, likely reactive. BLADDER: Well distended and normal in appearance. REPRODUCTIVE: The uterus is normal in size. BONES: No acute fracture. Within normal limits for the patient's age. There is a limbus vertebra at L4, an anatomic variant. OTHER FINDINGS: There is a small fat containing umbilical hernia. IMPRESSION: Mild circumferential mural thickening in the terminal ileum and at the ileocecal junction and small amount of free fluid in the right lower quadrant with reactive subcentimeter lymph nodes in the right lower quadrant, findings are most compatible with nonspecific infectious/inflammatory colitis. Clinical follow-up is advised. A preliminary report was provided by [employer].. The final report is tagged to the PA review folder. A preliminary report was provided by [employer].
== END 2018-09-24 23:01 | disposition home or self-care (01) ==
LOC: C.ER 15:40
DX: R10.12 Left upper quadrant pain (principal); R11.2 Nausea with vomiting, unspecified
CPT/HCPCS: 74022; 74176; 80053; 81001; 83690; 84703; 85025; 96361; 96374; 99284; C9113; J7030; Q9966